=== PATIENT | male | born 1995 | race Caucasian/White ===

== ENCOUNTER 2024-03-31 14:47 | Emergency (ER) | payer BC ==
[2024-03-31 14:54] VITALS: BP 119/63; PULSE 88; RESP 20; TEMP 97.9; BMI 30.4
[2024-03-31] MEDS ORDERED: diazePAM 2 MG TABLET ONE (16:19)
[2024-03-31 16:21] LABS: BASO % 0.4 % (0-2.0); EOS % 0.9 % (0-4.5); HEMATOCRIT 43.3 % (35.4-49); HEMOGLOBIN 15.3 GM/dL (11.7-16.9); LYMPH % 18.1 % (8-40); MCH 33.3 pg (25.7-33.7); MCHC 35.4 g/dl (32.0-35.9); MEAN CELL VOLUME 93.9 fl (80-96); MEAN PLT VOLUME 7.1 fl (7.5-11.1); MONO % 7.3 % (3.8-10.2); NEUT % 73.3 % (42.8-82.8); PLATELET COUNT 243 10^3/uL (134-434); RDW 12.9 % (11.9-15.9); WHITE BLOOD COUNT 8.7 K/mm3 (4.0-10.0)
[2024-03-31] MEDS: SODIUM CHLORIDE 0.9% 500 ML INFUS.BAG IV ONE (16:25)
[2024-03-31] MEDS: diazePAM 2 MG TABLET PO ONE (16:25)
[2024-03-31] MEDS ORDERED: LIDOCAINE 4% PATCH TP ONE (17:12)
[2024-03-31 17:13] LABS: POTASSIUM 4.2 mmol/L (3.5-5.1)
[2024-03-31 17:15] LABS: CALCIUM 8.8 mg/dL (8.5-10.1)
[2024-03-31] MEDS: LIDOCAINE 4% PATCH TP ONE (17:15)
[2024-03-31 17:16] LABS: ALBUMIN 4.1 g/dl (3.4-5.0); BLOOD UREA NITROGEN 12.1 mg/dL (7-18)
[2024-03-31 17:18] LABS: CREATININE 1.3 mg/dL (0.55-1.3)
[2024-03-31 17:20] LABS: BILIRUBIN,TOTAL 0.6 mg/dL (0.2-1); TOT PROT 7.1 g/dl (6.4-8.2)
[2024-03-31 17:25] LABS: EPI CELLS 5 /uL (0-25.1); HYALINE CASTS 1 /uL (0-3.1); URINE APPEARANCE CLEAR; URINE BACTERIA 1 /uL (0-1359); URINE BILIRUBIN 2+ (NEGATIVE); URINE COLOR DK YELLOW; URINE GLUCOSE (UA) NEGATIVE (NEGATIVE); URINE KETONE 1+ (NEGATIVE); URINE LEUK ESTERASE TRACE (NEGATIVE); URINE NITRITE NEGATIVE (NEGATIVE); URINE PROTEIN 1+ (NEGATIVE); URINE RBC 7 /uL (0-23.9); URINE WBC 7 /uL (0-25.8)
[2024-03-31] MEDS ORDERED: LIDOCAINE PATCH REMOVAL MC SCH (22:00)
== END 2024-03-31 18:02 | disposition home or self-care (01) ==
LOC: JER 14:47
DX: M43.17 Spondylolisthesis, lumbosacral region (principal)
CPT/HCPCS: 36415; 72100-TC-FY; 80053; 80307; 81003; 82550; 82553; 85025; 87086; 99283-25

== ENCOUNTER 2024-04-26 08:28 | Emergency (ER) | payer BC ==
[2024-04-26 09:00] VITALS: BP 102/60; PULSE 102; RESP 16; TEMP 98.4; BMI 28.0
[2024-04-26] MEDS: SODIUM CHLORIDE 0.9% 500 ML INFUS.BAG IV ONE (09:22)
[2024-04-26 09:42] LABS: BASO % 0.4 % (0-2.0); HEMATOCRIT 43.5 % (35.4-49); HEMOGLOBIN 15.1 GM/dL (11.7-16.9); LYMPH % 40.7 % (8-40); MCH 32.4 pg (25.7-33.7); MCHC 34.7 g/dl (32.0-35.9); MEAN CELL VOLUME 93.4 fl (80-96); MEAN PLT VOLUME 7.6 fl (7.5-11.1); MONO % 8.5 % (3.8-10.2); NEUT % 49.4 % (42.8-82.8); PLATELET COUNT 230 10^3/uL (134-434); RBC 4.66 M/mm3 (4.00-5.60); RDW 12.9 % (11.9-15.9); WHITE BLOOD COUNT 5.7 K/mm3 (4.0-10.0)
[2024-04-26 10:02] LABS: POTASSIUM 3.5 mmol/L (3.5-5.1)
[2024-04-26 10:04] LABS: CALCIUM 8.6 mg/dL (8.5-10.1)
[2024-04-26 10:05] LABS: ALBUMIN 3.8 g/dl (3.4-5.0); BLOOD UREA NITROGEN 20.3 mg/dL (7-18)
[2024-04-26 10:08] LABS: CREATININE 1.3 mg/dL (0.55-1.3)
[2024-04-26 10:10] LABS: TOT PROT 7.3 g/dl (6.4-8.2)
[2024-04-26 10:19] LABS: BILIRUBIN,TOTAL 0.3 mg/dL (0.2-1)
== END 2024-04-26 15:14 | disposition home or self-care (01) ==
LOC: JER 08:28
DX: R00.0 Tachycardia, unspecified (principal); R11.10 Vomiting, unspecified; T40.2X1A Poisoning by other opioids, accidental (unintentional), initial encounter
CPT/HCPCS: 36415; 80053; 82962; 85025; 93005; 93010; 99284-25